=== PATIENT | female | born 1945 | race Caucasian/White ===

== ENCOUNTER 2023-08-08 08:42 | Outpatient (CLI) | payer MEDICARE | END 2023-08-08 08:43 | disposition home or self-care (01) | LOC: CT 08:42 | PROVIDERS: ATTEND Plastic Surgery | DX: C43.39 Malignant melanoma of other parts of face (principal); R59.0 Localized enlarged lymph nodes; R91.1 Solitary pulmonary nodule; K11.8 Other diseases of salivary glands; J34.1 Cyst and mucocele of nose and nasal sinus; M47.812 Spondylosis without myelopathy or radiculopathy, cervical region; M46.82 Other specified inflammatory spondylopathies, cervical region; G95.89 Other specified diseases of spinal cord; M48.02 Spinal stenosis, cervical region | CPT/HCPCS: 70470; 70491 ==

== ENCOUNTER 2023-08-12 09:34 | Outpatient (CLI) | payer MEDICARE ==
[2023-08-12] MEDS ORDERED: Magnevist 469MG/ML 20 ML VIAL ONE (11:25)
== END 2023-08-12 09:35 | disposition home or self-care (01) ==
LOC: PET 09:34
PROVIDERS: ATTEND Internal Medicine Hematology & Oncology
DX: C43.39 Malignant melanoma of other parts of face (principal); R23.9 Unspecified skin changes; E04.1 Nontoxic single thyroid nodule; K11.8 Other diseases of salivary glands
CPT/HCPCS: 70553; 78816; A9552

== ENCOUNTER 2023-11-20 11:00 | Outpatient (CLI) | payer MEDICARE | END 2023-11-20 11:01 | disposition home or self-care (01) | LOC: PET 11:00 | PROVIDERS: ATTEND Internal Medicine Hematology & Oncology | DX: C43.39 Malignant melanoma of other parts of face (principal); R59.0 Localized enlarged lymph nodes; Z96.9 Presence of functional implant, unspecified | CPT/HCPCS: 78816; A9552 ==

== ENCOUNTER 2024-06-08 10:05 | Outpatient (CLI) | payer MEDICARE | END 2024-06-08 11:00 | disposition home or self-care (01) | LOC: PET 10:05 | PROVIDERS: ATTEND Internal Medicine Hematology & Oncology | DX: C43.39 Malignant melanoma of other parts of face (principal) | CPT/HCPCS: 78816; A9552 ==

== ENCOUNTER 2024-09-08 11:00 | Outpatient (CLI) | payer MEDICARE | END 2024-09-08 11:01 | disposition home or self-care (01) | LOC: PET 11:00 | PROVIDERS: ATTEND Internal Medicine Hematology & Oncology | DX: C43.39 Malignant melanoma of other parts of face (principal) | CPT/HCPCS: 78816; A9552 ==

== ENCOUNTER 2025-06-18 10:15 | Outpatient (CLI) | payer MEDICARE | END 2025-06-18 10:16 | disposition home or self-care (01) | LOC: PET 10:15 | PROVIDERS: ATTEND Internal Medicine Hematology & Oncology | DX: C43.39 Malignant melanoma of other parts of face (principal) | CPT/HCPCS: 78816; A9552 ==